=== PATIENT | male | born 1975 | race African-American/Black ===

== ENCOUNTER 2018-02-11 10:26 | Emergency (ER) | payer MEDICAID ==
[~2018-02-11] VITALS: Ht 193 cm; Wt 107.0 kg
[2018-02-11 10:53] VITALS: BP 141/98
[2018-02-11] MEDS ORDERED: TETANUS, DIPHTHERIA, PERTUSSIS VAC/PF 0.5ML (>7YR OLD) IM ONE (14:30)
== END 2018-02-11 14:48 | disposition home or self-care (01) ==
LOC: ER 10:26
DX: S90.561A Insect bite (nonvenomous), right ankle, initial encounter (principal); Z88.1 Allergy status to other antibiotic agents; Z88.9 Allergy status to unspecified drugs, medicaments and biological substances; W57.XXXA Bitten or stung by nonvenomous insect and other nonvenomous arthropods, initial encounter; Y93.89 Activity, other specified; Y92.89 Other specified places as the place of occurrence of the external cause; Y99.8 Other external cause status
CPT/HCPCS: 90471; 90715; 99283